=== PATIENT | female | born 1950 | race Caucasian/White ===

== ENCOUNTER 2021-03-29 12:33 | Inpatient (IN) | payer MEDICARE, MEDICAID ==
[~2021-03-29] VITALS: Ht 157.5 cm; Wt 76.0 kg
--- NOTE | 2021-03-29 13:16 | NUR ---
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 EXPLAINED THAT THIS IS A TRAIGE, THAT MD WILL CALL HER PRIMARY. PT CONTINUED TO CRY AND SCREAM, SON ASSISTED BACK TO ROOM. PT CONTINUE TO CRY STATING, "YOU ARE NOT LISTENING TO ME". PT TO ROOM 19
--- NOTE | 2021-03-29 13:25 | NUR ---
PT AMBULATORY TO ROOM 19 W/ C/O R KNEE PAIN AFTER TOTAL R KNEE SURGERY ON WEDNESDAY 4 DAYS AGO. SURGERY COMPLETED BY DR. TOM. PT STATES HER PAIN HAS BEEN UNCONTROLLED SINCE THE NERVE BLOCK HAS GONE AWAY. PT WAS PLACED ON 5 MG OXYCODONE W/O RELIEF. PT ALSO TOOK VALIUM FOR BREAKTHROUGH PAIN WHICH WORKED. PT WAS ABLE TO PERFORM EXERCISES AND THEN THE PAIN HAS BECOME EXCRUTIATING AND PT HAS BEEN UNABLE TO FUNCTION. PT RESTING ON GURNEY. TEARFUL IN ROOM. SWELLING NOTED TO R KNEE, R CALF, AND R THIGH WITH BRUISING. VSS. ERP DR. PARK AT BEDSIDE FOR EVAL.
[2021-03-29] MEDS ORDERED: ONDANSETRON 2MG/ML, 2ML ONE (13:34)
[2021-03-29] MEDS ORDERED: MORPHINE SULFATE 4 MG/ML, 1ML ONE ×3 (13:35→14:59)
--- NOTE | 2021-03-29 13:58 | NUR ---
PT STATES PAIN DECREASED FROM 06/08 TO 02/06. PT MEDICATED PER OCT. NADN. VSS.
[2021-03-29] MEDS ORDERED: ONDANSETRON 2MG/ML, 2ML IVPush ONE (14:00)
[2021-03-29] MEDS ORDERED: SODIUM CHLORIDE FLUSH 10ML SYR IVF ONE (14:00)
[2021-03-29] MEDS ORDERED: MORPHINE SULFATE 4 MG/ML, 1ML IVPush PRN ×3 (14:00→16:30)
--- NOTE | 2021-03-29 14:26 | NUR ---
PT CHART REVIEWED AND PLACED FOR RECHECK.
--- NOTE | 2021-03-29 14:46 | NUR ---
PT RESTING ON GURNEY. NADN. BREEN.
[2021-03-29] MEDS ORDERED: SODIUM CHLORIDE FLUSH 10ML SYR IVF PRN (16:00)
--- NOTE | 2021-03-29 16:04 | NUR ---
PT RESTING ON GURNEY. NADN. BREEN.
[2021-03-29] MEDS ORDERED: ONDANSETRON ODT 4 MG PO PRN (16:30)
[2021-03-29] MEDS ORDERED: ONDANSETRON 2MG/ML, 2ML IVPush PRN (16:30)
[2021-03-29] MEDS ORDERED: METHOCARBAMOL 500 MG TABLET PO PRN (16:30)
[2021-03-29] MEDS ORDERED: hydrALAzine 20 MG/ML, 1ML IVPush PRN (16:30)
[2021-03-29] MEDS ORDERED: DOCUSATE 100 MG CAPSULE PO PRN (16:30)
[2021-03-29] MEDS ORDERED: DIPHENHYDRAMINE 25 MG CAPSULE PO PRN (16:30)
[2021-03-29] MEDS ORDERED: ENALAPRILAT 1.25 MG/ML, 2ML IVPush PRN (16:30)
[2021-03-29] MEDS ORDERED: METO-282 PO (19:58)
[2021-03-29] MEDS ORDERED: VENL150T PO (19:58)
[2021-03-29] MEDS ORDERED: ISOS30TA21 PO (19:58)
[2021-03-29] MEDS ORDERED: ATOR20TA86 PO (19:58)
[2021-03-29] MEDS ORDERED: ONDA-89 PO (19:58)
[2021-03-29] MEDS ORDERED: ASPI-963 PO (19:58)
[2021-03-29] MEDS: ENOXAPARIN 40 MG/0.4 ML SQ SCH (19:59)
[2021-03-29] MEDS: OXYcodone IR 5MG TABLET PO PRN (20:00)
[2021-03-29] MEDS: ACETAMINOPHEN 325 MG TABLET PO PRN (20:00)
[2021-03-29 20:07] VITALS: BP 145/84
[2021-03-29 20:25] VITALS: BP 127/83
[2021-03-29 22:03] VITALS: BP 129/79
[2021-03-29] MEDS: DIAZEPAM 5 MG TABLET PO PRN (22:03)
[2021-03-30] MEDS: OXYcodone IR 5MG TABLET PO PRN ×6 (00:31→21:45)
[2021-03-30] MEDS: ACETAMINOPHEN 325 MG TABLET PO PRN ×2 (00:31→05:15)
[2021-03-30 00:45] VITALS: BP 130/63
[2021-03-30 06:18] LABS: BASOPHILS % (AUTO) 1 % (0-1); EOSINOPHILS % (AUTO) 3 % (1-7); LYMPHOCYTES % (AUTO) 33 % (22-44); MEAN CORPUSCULAR HEMOGLOBIN 31.9 pg (27.0-34.8); MEAN CORPUSCULAR HGB CONC 33.8 g/dL (32.4-35.8); MEAN PLATELET VOLUME 6.6 fL (7.4-10.4); MONOCYTES % (AUTO) 17 % (2-9); NEUTROPHILS % (AUTO) 46 % (42-75); PLATELET COUNT 166 x10^3/uL (130-400); RED BLOOD COUNT 2.74 x10^6/uL (3.82-5.3); RED CELL DISTRIBUTION WIDTH 13.4 % (9.6-15.2)
[2021-03-30 06:26] LABS: ANION GAP 3 mmol/L (5-15); CALCIUM 8.8 mg/dL (8.5-10.1); CHLORIDE 109 mmol/L (98-107); CREATININE 0.66 mg/dL (0.55-1.02)
[2021-03-30 07:03] VITALS: BP 103/57
[2021-03-30] MEDS: DIAZEPAM 5 MG TABLET PO PRN (11:44)
[2021-03-30 13:05] VITALS: BP 117/77
[2021-03-30 19:04] VITALS: BP 103/71
[2021-03-30] MEDS: ENOXAPARIN 40 MG/0.4 ML SQ SCH (21:43)
[2021-03-31] MEDS: OXYcodone IR 5MG TABLET PO PRN ×4 (02:05→14:45)
[2021-03-31 02:36] VITALS: BP 121/78
[2021-03-31 07:20] VITALS: BP 120/79
[2021-03-31] MEDS ORDERED: DOCU-131 PO (10:01)
[2021-03-31] MEDS ORDERED: DIAZ5TAB4 PO (10:01)
[2021-03-31] MEDS ORDERED: OXYC5TAB98 PO (10:01)
[2021-03-31 13:25] VITALS: BP 112/77
== END 2021-03-31 16:08 | disposition home or self-care (01) | DRG 561 ==
LOC: ED 13:39 → INTOOBSV 15:43 → EDIP 15:43 → 4NE 17:07 → OBSVTOIN 03-30 10:28
PROVIDERS: ADMIT Family Medicine; ATTEND Hospitalist
DX: T84.84XA Pain due to internal orthopedic prosthetic devices, implants and grafts, initial encounter (principal); M17.0 Bilateral primary osteoarthritis of knee; I25.10 Atherosclerotic heart disease of native coronary artery without angina pectoris; Y83.8 Other surgical procedures as the cause of abnormal reaction of the patient, or of later complication, without mention of misadventure at the time of the procedure; Z96.651 Presence of right artificial knee joint; Z95.1 Presence of aortocoronary bypass graft; Z88.2 Allergy status to sulfonamides; Z88.8 Allergy status to other drugs, medicaments and biological substances; Y92.89 Other specified places as the place of occurrence of the external cause
CPT/HCPCS: 36415; 80048; 84155; 84165; 85025; 96374; 96375; G0378; J1650; J2405; J2270